=== PATIENT | male | born 1980 | race Caucasian/White ===

== ENCOUNTER 2016-12-06 10:03 | Emergency (ER) | payer BC, OTHER ==
[~2016-12-06] VITALS: Ht 175.3 cm; Wt 82.0 kg
[2016-12-06] MEDS ORDERED: SODIUM CHLORIDE 0.9% 1,000 ML IV ONE ×2 (10:25→15:05)
[2016-12-06] MEDS ORDERED: LORAZEPAM 2MG/ML CPJ IV ONE (10:30)
[2016-12-06] MEDS ORDERED: LORAZEPAM 1MG TABLET PO ONE (11:00)
[2016-12-06 11:12] LABS: *AMPHETAMINES SCREEN URINE NEGATIVE (NEGATIVE); *BARBITURATES SCREEN URINE PRESUMTIVE POSITIVE (NEGATIVE); *BENZODIAZEPINES SCREEN URINE PRESUMTIVE POSITIVE (NEGATIVE); *COCAINE SCREEN URINE NEGATIVE (NEGATIVE); CANNABINOID URINE SCREEN PRESUMTIVE POSITIVE (NEGATIVE); METHADONE URINE SCREEN NEGATIVE (NEGATIVE); OPIATES URINE SCREEN NEGATIVE (NEGATIVE); PHENCYCLIDINE URINE SCREEN NEGATIVE (NEGATIVE)
[2016-12-06 11:15] LABS: BASOPHILS % 0.9 % (0.0-2.0); EOSINOPHILS % 0.4 % (0.0-5.0); HEMATOCRIT. 40.8 % (42.0-52.0); HEMOGLOBIN. 13.7 g/dL (14.0-18.0); LYMPHOCYTES % 20.7 % (20.0-50.0); MEAN CORPUSCULAR HEMOGLOBIN 29.6 pg (28.0-32.0); MEAN PLATELET VOLUME 7.3 fl (7.4-10.4); MONOCYTES % 12.4 % (2.0-8.0); NEUTROPHILS % 65.6 % (40.0-76.0); PLATELET 229 x1000/uL (130-400); RED BLOOD CELL COUNT 4.63 mill/uL (4.7-6.1); RED CELL DISTRIBUTION WIDTH 17.6 % (11.6-14.6)
[2016-12-06 11:25] LABS: CARBON DIOXIDE 21 mEq/L (21-32); CHLORIDE 111 mEq/L (98-107)
[2016-12-06 11:26] LABS: ETHANOL BLOOD 348 mg/dL
[2016-12-06 20:21] VITALS: BP 159/72
== END 2016-12-06 20:21 | disposition home or self-care (01) ==
LOC: ER 10:03
DX: F10.229 Alcohol dependence with intoxication, unspecified (principal); F15.10 Other stimulant abuse, uncomplicated; Y90.8 Blood alcohol level of 240 mg/100 ml or more
CPT/HCPCS: 36415; 80048; 80305; 85025; 96361; 96374; 99285; G0482; J2060; J7030; Z7610

== ENCOUNTER 2018-03-10 22:30 | Emergency (ER) | payer BC, OTHER ==
[~2018-03-10] VITALS: Ht 182.9 cm; Wt 91.0 kg
[2018-03-11] MEDS ORDERED: IBUPROFEN 600MG TABLET PO ONE (01:30)
[2018-03-11 04:16] VITALS: BP 121/72
== END 2018-03-11 04:16 | disposition home or self-care (01) ==
LOC: ER 22:30
DX: M79.672 Pain in left foot (principal); W25.XXXA Contact with sharp glass, initial encounter; Y93.89 Activity, other specified; Y92.89 Other specified places as the place of occurrence of the external cause
CPT/HCPCS: 73630; 99283; 99284